=== PATIENT | male | born 1980 | race Asian ===

== ENCOUNTER 2019-01-12 07:17 | Day surgery (SDC) | payer BC ==
--- NOTE | 2019-01-11 18:16 | Pre-Procedure Note/Attestation ---
Pre-Procedure Note/Attestation Complete Prior to Procedure Planned Procedure: not applicable Procedure Narrative: 1. Septoplasty 2. Submucous resection right inferior turbinate 3. Submucous resection left inferior turbinate Indications for Procedure Pre-Operative Diagnosis: 1. Nasal septal deviation 2 Hypertrophied bilateral inferior turbinates Attestation I attest that I discussed the nature of the procedure; its benefits; risks and complications; and alternatives (and the risks and benefits of such alternatives ), prior to the procedure, with the patient (or the patient's legal sales representative supervisor). I attest that, if there was a reasonable possibility of needing a blood transfusion, the patient (or the patient's legal sales representative supervisor) was given the [place] [facility] standardized written summary, pursuant to the [place] Blood Safety Act ([place] Health and Safety Code # 1645, as amended). I attest that I re-evaluated the patient just prior to the surgery and that there has been no change in the patient's H&P. Elder Calderon MD Jan 11, 2019 18:16
--- NOTE | 2019-01-11 18:17 | Brief Operative Note ---
Immediate Post Operative Note Operative Note Chief Complaint: Nasal aiway obstruction Pre-op Diagnosis: 1. Nasal septal deviation 2 Hypertrophied bilateral inferior turbinates Procedure: 1. Septoplasty 2. Submucous resection right inferior turbinate 3. Submucous resection left inferior turbinate Post-op Diagnosis: same as pre-op Surgeon: Elder Calderon MD Physical Design Engineer: none Additional Surgeons: none Anesthesiologist: Jared Anesthesia: general Specimen: none Complications: none Condition: stable Fluids: D5LR Estimated Blood Loss: volume - 20 cc Drains: none Packing: SinoNasal gel Implant(s) used?: No Elder Calderon MD Jan 11, 2019 18:17
--- NOTE | 2019-01-11 18:21 | Discharge Instructions ---
Discharge Instructions Discharge Instructions Follow up with: Appt already scheduled at Dr. Calderon's office next week. Diet: regular Resume Normal Activity?: No Activity: light activity Pneumonia Vaccine: pt refused vaccine Influenza Vaccine (Dec to May): pt refused vaccine Follow Up Orders pt has printed ost op instructions reviewed and given to him last week during his pre op appt. along with Rx for post op meds. Return to Work/School on: Jan 25, 2019 Special Instructions ice to face x 48 hours For Surgical Patients Dressing Care: may change May shower: Yes For Congestive Heart Failure Reminder Report to your physician any weight gain of 5 pounds or more in one week. Elder Calderon MD Jan 11, 2019 18:21
--- NOTE | 2019-01-11 18:35 | History and Physical ---
History & Physical (DB) History & Physical History & Physical Chief Complaint: Nasal airway obstruction secondary to nasal septal deviation and hypertrophied bilateral inferior turbinates. Reason for Hospitalization: outpt Septo/Turbs History obtained from: Chart and Patient HPI: is a 38 year old male who has failed nasal steroids and antihistamines. Past Medical History:Irritable bowel, out, Urticaria Social History: Single, no children Diagnosis:Nasal septal deviation, Bilateral hypertrophied inferior turbinates. Past Surgical History:Wrist, colonoscopy and septoplasty elsewhere many years ago. Occupational History:Brand content producer Smoking status:none Smokeless tobacco:none Alcohol use:yes Drug use:none Family History:DM, high cholesterol Allergies:NKDA Medications:Azelastine, Uloric Review of Symptoms: General ROS: no weight loss or fever Psychological ROS: no depression or mood changes, no memory loss Ophthalmic ROS: no visual changes or eye irritation ENT ROS: + nasal congestion, hearing loss, dizziness Allergy and Immunology ROS: no allergic symptoms or urticaria Hematological and Lymphatic ROS: no swollen glands, unusual bleeding or bruising Endocrine ROS: no polyuria, polydipsia, weight changes, temperature intolerance Respiratory ROS: no cough, shortness of breath, or wheezing Cardiovascular ROS: no chest pain or dyspnea on exertion Gastrointestinal ROS: no abdominal pain, change in bowel habits, or black or bloody stools Musculoskeletal ROS: no myalgias or arthralgias Neurological ROS: no TIA or stroke symptoms Dermatological ROS: no new or changing skin lesions, rashes or pruritis Physical Exam Vitals: Intake/Output Summary (Last 24 hours) General appearance: alert, cooperative, no distress, appears stated age Head: Normocephalic, without obvious abnormality, atraumatic Eyes: conjunctivae/corneas clear. PERRL, EOM's intact. NOSE: SEPTAL DEVIATION, BILATERAL HYPERTROPHIED INFERIOR TURBINATES. Throat: Lips, mucosa, and tongue normal. Teeth and gums normal Neck: supple, symmetrical, trachea midline, no adenopathy, thyroid: not enlarged, symmetric, no tenderness/mass/nodules, no carotid bruit and no JVD Lungs: clear to auscultation bilaterally Heart: regular rate and rhythm, S1, S2 normal, no murmur, click, rub or gallop Abdomen: soft, non-tender. Bowel sounds normal. No masses, no organomegaly Extremities: extremities normal, atraumatic, no cyanosis or edema Pulses: 2+ and symmetric Skin: Skin color, texture, turgor normal. No rashes or lesions Neurologic: Grossly normal Laboratories:NONE Estimated:45 minutes Imaging and ancillary data: none Assessment/Problem List: Nasal septal deviation Hypertrophied bilateral inferior turbinates. Plan: 1. Septoplasty 2. Submucous resection right inferior turbinate 3. Submucous resection left inferior turbinate DVT Prophylaxis: scd Code status: full Hospital Classification declaration: Based on this initial evaluation, and depending on the patient's clinical course, I anticipate that this patient will nor require hospitalization Disposition: Once the patient is stable to leave the hospital, I anticipate the patient will likely be discharged to the following environment-home I spent 70 minutes on this patient's case, and minutes was dedicated to counseling and/or care coordination. Case was discussed with not Time of note may not reflect time of encounter. Elder Calderon MD Jan 11, 2019 18:35
[2019-01-12] VITALS (10 sets, daily range): BP systolic 118–140; BP diastolic 79–102
[~2019-01-12] VITALS: Ht 175.3 cm; Wt 87.1 kg
[~2019-01-12 07:17] MED LIST: ceFAZolin sod 1 GM in D5W 55 ML IV ONE
[2019-01-12] MEDS ORDERED: Dexamethasone 4mg/ml vial IVP ONE (07:30)
[2019-01-12] MEDS ORDERED: ZYRTEC10 MG ORAL (08:00)
[2019-01-12] MEDS ORDERED: ULORIC40 MG ORAL (08:01)
[2019-01-12] MEDS ORDERED: Lidocaine 1% 10mg/ml/Epi 0.005mg/ml 30ml vial INJ ONE (08:25)
[2019-01-12] MEDS ORDERED: Bupivacaine 0.5% Inj 30 ml vial INJ ONE (08:25)
[2019-01-12] MEDS ORDERED: Cocaine HCl 4% 4ml vial TOPIC ONE (08:25)
[2019-01-12] MEDS ORDERED: Sterile Water Irrig 1000ml IRRIG ONE (08:30)
[2019-01-12] MEDS ORDERED: NS Irrig 1000ml ONE (08:30)
[2019-01-12] MEDS ORDERED: LR 1000ml ONE (08:30)
[2019-01-12] MEDS ORDERED: fentaNYL 100 mcg/2 mL IV ONE (08:42)
[2019-01-12] MEDS ORDERED: Midazolam 2mg/2ml Inj ONE (08:42)
[2019-01-12] MEDS ORDERED: Lidocaine 1% MPF 10mg/ml 5ml ONE (09:09)
[2019-01-12] MEDS ORDERED: Metoclopramide 10mg/2ml Inj ONE (09:09)
[2019-01-12] MEDS ORDERED: Propofol 200mg/20ml IV ONE (09:09)
[2019-01-12] MEDS ORDERED: Dexamethasone 4mg/ml vial ONE (09:09)
[2019-01-12] MEDS ORDERED: HYDROcodone/Acetamin 5/325 tab ORAL PRN (09:30)
[2019-01-12] MEDS ORDERED: HYDROmorphone 1mg/ml Carpuject SUBQ PRN (09:30)
[2019-01-12] MEDS ORDERED: fentaNYL 100 mcg/2 mL IV PRN (09:30)
[2019-01-12] MEDS ORDERED: Metoclopramide 10mg/2ml Inj IVP PRN (09:30)
--- NOTE | 2019-01-12 09:32 | Anethesia Preoperative Eval ---
Anesthesia Pre-op PMH/ROS General Date of Evaluation: Jan 12, 2019 Time of Evaluation: 08:35 Anesthesiologist: destiny ASA Score: ASA 1 Mallampati Score Class I : Soft palate, uvula, fauces, pillars visible Class II: Soft palate, uvula, fauces visible Class III: Soft palate, base of uvula visible Class IV: Only hard plate visible Mallampati Classification: Class II Surgeon: abbie Diagnosis: deviated septum Surgical Procedure: septoplasty Anesthesia History: none Family History: no anesthesia problems Allergies: Coded Allergies: Animal Dander (Verified Allergy, Intermediate, watery eyes; sneezing, 01/11) TREE AND SHRUB POLLEN (Verified Allergy, Intermediate, watery eyes; sneezing, 01/11/19) Medications: see eMAR Patient NPO?: Yes NPO Date: Jan 12, 2019 NPO Time: 00:01 Past Medical History Cardiovascular: Denies: HTN, CAD, NV, valve dz, arrhythmia, other Pulmonary: Denies: asthma, COPD, DESHAUN, other Gastrointestinal/Genitourinary: Denies: GERD, CRI, ESRD, other Neurologic/Psychiatric: Denies: dementia, CVA, depression/anxiety, TIA, other Endocrine: Denies: DM, hypothyroidism, steroids, other HEENT: Denies: cataract (L), cataract (R), glaucoma, [place] (L), [place] (R), other Hematology/Immune: Denies: anemia, DVT, bleeding disorder, other Musculoskeletal/Integumentary: Denies: OA, RA, DJD, DDD, edema, other PSxH Narrative: septoplasty Anesthesia Pre-op Phys. Exam Physician Exam Last Vital Signs Date Time Temp Pulse Resp B/P (MAP) Pulse Ox O2 Delivery O2 Flow Rate FiO2 01/12/19 08:23 Room Air 01/12/19 08:11 97.0 59 18 118/80 97 Constitutional: NAD Neurologic: CN 2-12 intact Cardiovascular: RRR Respiratory: CTA Gastrointestinal: S/NT/ND Airway Exam Mallampati Classification 2 Mallampati Score: Class I MO: full ROM: full Anesthesia Pre-op A/P Studies Pre-op Studies: EKG - sr Risk Assessment & Plan Plan: general Status Change Before Surgery: No Pre-Antibiotics Drug: ancef Given Within 1 Hr of Incision: Yes Time Given: 08:40 Norma Mcdonald CRNA Jan 12, 2019 09:32
--- NOTE | 2019-01-12 09:33 | Immediate Post-Op Evaluation ---
Immediate Post-Op Evalulation Immediate Post-Op Evalulation Procedure: septoplasty Date of Evaluation: Jan 12, 2019 Time of Evaluation: 09:32 IV Fluids: 500 Estimated Blood Loss: 20 Blood Pressure Systolic: 134 Blood Pressure Diastolic: 99 Pulse Rate: 70 Respiratory Rate: 14 O2 Sat by Pulse Oximetry: 98 Temperature (Fahrenheit): 97.8 Nausea: No Vomiting: No Complications none Patient Status: awake, reacts, patent Hydration Status: adequate Drug: ancef Given Within 1 Hr of Incision: Yes Time Given: 08:40 Norma Mcdonald CRNA Jan 12, 2019 09:33
--- NOTE | 2019-01-12 16:15 | Operative Note - Dictated ---
DATE OF OPERATION: 01/12/2019 SURGEON: Elder Calderon M.D. DOT ETCHER: None. ANESTHESIOLOGIST: HUNTER Green. ANESTHESIA: LMA general as well as 4 mL of 4% topical cocaine on 2 nasal pledgets and 15 mL of 1% lidocaine with 1:100,000 epinephrine, and bupivacaine 0.5% with 1:200,000 epinephrine. INDICATION FOR SURGERY: The patient elsewhere had septoplasty, which did not work, he is here for revision septoplasty, submucous resection of bilateral inferior turbinates, having failed nasal steroids and antihistamines. PREOPERATIVE DIAGNOSES: 1. Septal deviation. 2. Hypertrophied right and left inferior turbinates. POSTOPERATIVE DIAGNOSES: 1. Septal deviation. 2. Hypertrophied right and left inferior turbinates. FINDINGS: 1. Septal deviation. 2. Hypertrophied right and left inferior turbinates. PROCEDURES: 1. Septoplasty. 2. Submucous resection of right inferior turbinate. 3. Submucous resection of left inferior turbinate. TECHNIQUE: The patient was prepped and draped in usual manner, the LMA anesthesia. Time-out was performed. All agreed as to the procedure and equipment required. I then proceeded to inject the aforementioned lidocaine, Marcaine, and epinephrine mixture as well as placed the four nasal pledgets after prepping. I dressed the left inferior turbinate first, a small incision, passed the radiofrequency wand after coating it with saline gel x2, 10 seconds each and outfractured with a Boies elevator. I then addressed the right inferior turbinate, a small incision in the anterior inferior aspect. Passed the radiofrequency wand after coating with nasal gel, setting of 6 x2 for 10 seconds each time. Outfractured with a Boies elevator. I then proceeded to check the septum, had a small incision on the right-hand side. There was cartilage that had fractures in it, this was refractured and moved back to the midline. I then closed this with a 4-0 plain suture. Please note, at the end of the case, I literally could stick my pinky finger through both nostrils, so as a good airway. ESTIMATED BLOOD LOSS: 20 mL. COMPLICATIONS: None. DRAINS: None. The patient extubated, awake, and alert, in the operating room and the recovery room. Elder Calderon M.D. DR: VIDYA JOB#: [id number] CC:
[2019-01-13 11:48] VITALS: BP 138/85
--- NOTE | 2019-01-13 11:48 | 48 Hour Post Anesthesia Eval ---
Post Anesthesia Evaluation Procedure: septoplasty Date of Evaluation: Jan 13, 2019 Time of Evaluation: 11:48 Blood Pressure Systolic: 138 0: 85 Pulse Rate: 65 Respiratory Rate: 14 O2 Sat by Pulse Oximetry: 98 Airway: patent Nausea: No Vomiting: No Hydration Status: adequate Cardiopulmonary Status: stable Mental Status/LOC: patient returned to baseline Follow-up Care/Observations: na Post-Anesthesia Complications: none Follow-up care needed: N/A Norma Mcdonald [facility] Jan 13, 2019 11:48
== END 2019-01-12 11:00 | disposition home or self-care (01) ==
LOC: SUR 07:17
DX: J34.2 Deviated nasal septum (principal); J34.3 Hypertrophy of nasal turbinates
CPT/HCPCS: 30140; 30520; J0690; J1100; J2250; J2405; J2704; J2765; J3010; J3490; 94003; 94150